=== PATIENT | female | born 1935 | race Caucasian/White ===

== ENCOUNTER 2021-01-15 12:13 | Inpatient (IN) | payer MEDICARE ==
[~2021-01-15] VITALS: Ht 165.1 cm; Wt 44.9 kg
[~2021-01-15 12:13] MED LIST: ASPIRIN81 MG PO; ATIVAN1 MG PO; B-12 DOTS500 MCG PO; BENTYL 10MG CAP10 MG PO; COLACE 100MG C100 MG PO; FERROUS SULFAT325 MG PO; FOLIC ACID 1 MG1 MG PO; IBUPROFEN600 MG PO; IMDUR ER TAB 3030 MG PO; LEXAPRO20 MG PO; LIPITOR20 MG PO; PREVACID30 MG PO; SYNTHROID100 MCG PO; ZEBETA 5 MG TAB5 MG PO
[2021-01-15 12:57] LABS: HEMOGLOBIN 10.2 gm/dl (12.3-15.3); RED BLOOD COUNT 3.11 M/UL (4.00-5.10); WHITE BLOOD COUNT 6.6 K/UL (4.5-11.0)
[2021-01-15 16:25] LABS: BUN/CREATININE RATIO 11 (0-10)
[2021-01-16 07:59] LABS: WHITE BLOOD COUNT 6.3 K/UL (4.5-11.0)
[2021-01-16 08:02] LABS: HEMOGLOBIN 8.2 gm/dl (12.3-15.3); RED BLOOD COUNT 2.63 M/UL (4.00-5.10)
[2021-01-16 08:29] LABS: BUN/CREATININE RATIO 17 (0-10)
[2021-01-16] MEDS ORDERED: FUROSEMIDE20 MG PO (09:26)
[2021-01-16] MEDS ORDERED: CYPROHEPTADINE H4 MG PO (09:26)
[2021-01-16] MEDS ORDERED: DICYCLOMINE HCL10 MG PO (09:26)
[2021-01-16] MEDS ORDERED: FERROUS SULFAT325 MG PO (09:30)
[2021-01-16] MEDS ORDERED: MIRTAZAPINE15 MG PO (09:31)
[2021-01-16] MEDS ORDERED: TYLENOL EXTRA500 MG PO (09:32)
--- NOTE | 2021-01-16 17:02 | NUR ---
NEELIMA MOSS TRIED DOPHOFF INSERTION WITH NO SUCCESS. DR. HIGH NOTIFIED AND STATED TO CONTACT [employer]MP [employer]OR OPERATOR
[2021-01-17 07:16] LABS: HEMOGLOBIN 8.3 gm/dl (12.3-15.3); RED BLOOD COUNT 2.63 M/UL (4.00-5.10)
[2021-01-17 07:35] LABS: BUN/CREATININE RATIO 15 (0-10)
[2021-01-17 07:36] LABS: WHITE BLOOD COUNT 4.7 K/UL (4.5-11.0)
[2021-01-18 06:02] LABS: RED BLOOD COUNT 2.73 M/UL (4.00-5.10); WHITE BLOOD COUNT 4.2 K/UL (4.5-11.0)
[2021-01-18 06:18] LABS: BUN/CREATININE RATIO 14 (0-10)
[2021-01-18 21:26] LABS: BODY FLUID SOURCE PLEURAL
[2021-01-18 21:28] LABS: MONONUCLEAR CELLS 92.6 (75-100); POLYMORPHONUCLEAR % 7.4 (0-25); RBC (AUTOMATED) 0 (0-100000); WBC (AUTOMATED) 217 (0-500)
[2021-01-18 21:58] LABS: LDH, BODY FLUID 77 U/L; TOTAL PROTEIN, BODY FLUID 2.8 gm/dL
[2021-01-19 06:51] LABS: HEMOGLOBIN 9.5 gm/dl (12.3-15.3); RED BLOOD COUNT 2.89 M/UL (4.00-5.10)
[2021-01-19 07:09] LABS: BUN/CREATININE RATIO 12 (0-10)
[2021-01-20 06:53] LABS: HEMOGLOBIN 9.2 gm/dl (12.3-15.3); RED BLOOD COUNT 2.79 M/UL (4.00-5.10)
[2021-01-20 06:55] LABS: WHITE BLOOD COUNT 7.9 K/UL (4.5-11.0)
[2021-01-20 07:14] LABS: BUN/CREATININE RATIO 24 (0-10)
[2021-01-20 15:10] LABS: ORGANISM ID Not indicated. (.); SPECIMEN SOURCE Urine (.)
--- NOTE | 2021-01-20 17:47 | NUR ---
PT WITH STEADY DECLINE THROUGHOUT SHIFT. SPOKE WITH DAUGHTER AT LENGTH RE: PT'S POOR PROGNOSIS. O2 SAT DROPPING INTO 80'S AND TAKING LONGER TO COME UP. PT VERY WET AND CONGESTED SOUNDING. SUCTIONED MULTIPLE TIMES PER NSG AND RT WTIHOUT IMPROVEMENT. PT VERY LETHARGIC. OPENS EYES AND DOES ANSWER SOME QUESTIONS, BUT NOT TALKATIVE OR ALERT YESTERDAY. DAUGHTER AND GRANDDAUGHTER NOTED CHANGE WELL. EXPLAINED WORSENING PNEUMOTHORAX TO DAUGHTER AND THAT SUCTION ISN'T HELPING MUCH. EXPLAINED THE PROCESS OF CHEST TUBE INSERTATION TO HER AND DISCUSSED OTHER TREATMENT OPTIONS. DAUGHTER STATES PT WOULD NOT WANT ANY OF THAT. COMFORT MEASURES EXPLAINED TO DAUGHTER. MD NOTIFIED AND CAME TO SEE PT. AFTER TALKING WITH DAUGHTER, DECISION WAS MADE TO MAKE PT COMFORT MEASURES.
[2021-01-23 10:15] LABS: STREPTOCOCCUS PNEUMONIAE AG Positive (Negative)
--- NOTE | 2021-01-29 17:53 | NUR ---
[id number] PT NOTED WITH LABORED BREATHING , NO DISTRESS . COMFORT MEASURES CONTINUED . 1130 PT'S HEART RATE INCREASING FROM 180' TO 200'S OXYGEN IS 53% I SPOKE WITH THE DAUGHTER AND SHE IS AWARE THAT HER MOTHER IS ACTIVELY DYING DISCUSSED FOR HER TO CONTINUE A DNR STATUS. [address] DOS SANTOS CALLED TO PRONOUNCE PATIENT , JAZZY NOTIFIED [facility].
== END 2021-01-29 16:40 | disposition expired | DRG 177 ==
LOC: ER1 12:13 → MED SURG 4 17:57 → CDU 17:57 → MED SURG 4 19:25
PROVIDERS: Student in an Organized Health Care Education/Training Program; ADMIT Internal Medicine
PROC: 0DH68UZ Insertion of Feeding Device into Stomach, Via Natural or Artificial Opening Endoscopic (ICD-10-PCS; 2021-01-17)
PROC: 0DJ08ZZ Inspection of Upper Intestinal Tract, Via Natural or Artificial Opening Endoscopic (ICD-10-PCS; 2021-01-17)
PROC: 0W993ZZ Drainage of Right Pleural Cavity, Percutaneous Approach (ICD-10-PCS; 2021-01-18)
PROC: BB4BZZZ Ultrasonography of Pleura (ICD-10-PCS; 2021-01-18)
PROC: B24BZZZ Ultrasonography of Heart with Aorta (ICD-10-PCS; principal; 2021-01-19)
DX: J15.211 Pneumonia due to Methicillin susceptible Staphylococcus aureus (principal); G93.41 Metabolic encephalopathy; Z66 Do not resuscitate; Z20.822 Contact with and (suspected) exposure to COVID-19; I63.81 Other cerebral infarction due to occlusion or stenosis of small artery; J93.83 Other pneumothorax; J90 Pleural effusion, not elsewhere classified; I50.32 Chronic diastolic (congestive) heart failure; N30.00 Acute cystitis without hematuria; E87.1 Hypo-osmolality and hyponatremia; J98.11 Atelectasis; K81.0 Acute cholecystitis; E44.1 Mild protein-calorie malnutrition; Z68.1 Body mass index [BMI] 19.9 or less, adult; G81.94 Hemiplegia, unspecified affecting left nondominant side; Z51.5 Encounter for palliative care; I25.10 Atherosclerotic heart disease of native coronary artery without angina pectoris; R74.01 Elevation of levels of liver transaminase levels; I11.0 Hypertensive heart disease with heart failure; R13.10 Dysphagia, unspecified; K21.9 Gastro-esophageal reflux disease without esophagitis; E03.9 Hypothyroidism, unspecified; I73.9 Peripheral vascular disease, unspecified; I48.91 Unspecified atrial fibrillation; L89.322 Pressure ulcer of left buttock, stage 2; E78.5 Hyperlipidemia, unspecified; J13 Pneumonia due to Streptococcus pneumoniae; R47.81 Slurred speech; R53.81 Other malaise; E87.6 Hypokalemia; Z90.49 Acquired absence of other specified parts of digestive tract; Z90.710 Acquired absence of both cervix and uterus; Z88.2 Allergy status to sulfonamides; Z82.49 Family history of ischemic heart disease and other diseases of the circulatory system; Z82.3 Family history of stroke; Z79.01 Long term (current) use of anticoagulants; Z79.82 Long term (current) use of aspirin
CPT/HCPCS: ECHO; 36415; 70450; 70551; 71045; 71250; 80048; 80053; 80202; 81001; 82140; 82550; 82553; 82607; 82962; 83036; 83540; 83550; 83605; 83615; 83735; 83874; 83880; 83986; 84100; 84155; 84157; 84439; 84443; 84484; 85025; 85027; 85652; 86140; 87015; 87040; 87070; 87077; 87081; 87086; 87116; 87186; 87205; 87278; 87899; 89051; 92526; 92610; 93005; 93306; 93880; 94640; 94664; 94760; 96374; 97110-GP-CQ; 97162; 97166; 97530; 97530-GP-CQ; 99285; C1729; C9113; J0360; J0456; J0690; J0696; J1650; J1940; J2250; J2270; J3370; J7030; J7040; J7070; U0002